=== PATIENT | male | born 1945 ===

== ENCOUNTER 2018-02-13 20:36 | Emergency (ER) | payer SELFPAY ==
[2018-02-13 21:25] VITALS: PULSE 77; RESP 20; TEMP 97.8; O2SAT 100
--- NOTE | 2018-02-13 22:14 | ED PDOC ---
HPI: Back Time Seen by Provider: 02/13/18 21:30 Chief Complaint (Nursing): Back Pain Chief Complaint (Provider): Back Pain History Per: Patient Onset/Duration Of Symptoms: Days (x 120 days) Current Symptoms Are (Timing): Still Present Quality Of Discomfort: "Pain" Additional Complaint(s): 72 year old male, is currently a dialysis patient with a PMHx of HTN, presents to the ED complaining of intermittent L shoulder pain that radiates to the left mid back for about 4 months. Patient states he receives dialysis 3 times a week on Mondays, Wednesdays, and Fridays. Patient reports he has completed today's dialysis without any complications. Otherwise: (-) trauma, (-) injury, (-) fever , (-) cough, (-) chest pain, (-) shortness of breath, (-) abdominal pain, (-) nausea, (-) diarrhea. PMD: None provided Past Medical History Reviewed: Historical Data, Nursing Documentation, Vital Signs Vital Signs: Last Vital Signs Temp 97.8 F 02/13/18 21:20 Pulse 77 02/13/18 21:20 Resp 20 02/13/18 21:20 BP 179/78 H 02/13/18 21:20 Pulse Ox 100 02/13/18 21:20 - Medical History PMH: HTN - Surgical History Surgical History: No Surg Hx - Family History Family History: States: Unknown Family Hx - Allergies Allergies/Adverse Reactions: Allergies Allergy/AdvReac Type Severity Reaction Status Date / Time No Known Allergies Allergy Verified 02/13/18 21:19 Review of Systems ROS Statement: Except As Marked, All Systems Reviewed And Found Negative Musculoskeletal: Positive for: Back Pain (left shoulder pain radiating to left mid back) Physical Exam - Physical Exam Comments: GENERAL APPEARANCE: Patient is awake, alert, oriented x 3, in no acute distress. SKIN: Warm, dry; (-) cyanosis. EYES: (-) conjunctival pallor. ENMT: Mucous membranes moist. NECK: (-) tenderness, (-) stiffness, (-) lymphadenopathy. CHEST AND RESPIRATORY: (-) rales, (-) rhonchi, (-) wheezes; breath sounds equal bilaterally. HEART AND CARDIOVASCULAR: (-) irregularity; (-) murmur, (-) gallop. ABDOMEN AND GI: Soft; (-) tenderness; (-) palpable mass. BACK: (-) tenderness, (-) direct bony tenderness. EXTREMITIES: (-) tenderness, (+) AV fistula left medial intact, (-) erythema, ( -) edema, (-) deformity. Distal pulses good bilaterally. NEURO AND PSYCH: Mental status as above. Intact sensation bilaterally; normal strength in extension of the knees, plantar and dorsiflexion of the toes. - ECG O2 Sat by Pulse Oximetry: 100 (RA) Pulse Ox Interpretation: Normal Medical Decision Making Medical Decision Making: Time: 2150 Impression: Left shoulder pain Plan: -- Left Shoulder XR -- Blood pressure was elevated. When asked, patient admits to taking blood pressure medications today. XR L shoulder : no fracture, no dislocation, as read by INDY. X-ray results discussed with the patient in great detail. Repeat BP 167/77. Based on history, exam and diagnostic results, plan will be for outpatient follow up with pmd and given referral to ortho. Patient instructed to follow-up with pmd and referral provided in 1-2 days without fail. Advised to continue taking his pain medication tylenol #3 prn for pain. Return to the emergency room at any time for any new or worsening symptoms. Patient states he fully agrees with and understands discharge instructions. States that he agrees with the plan and disposition. Verbalized and repeated discharge instructions and plan. I have given the patient opportunity to ask any additional questions. Scribe Attestation: Documented by Fer Smith, acting as a scribe for Aniyah Hill PA-C. Provider Scribe Attestation: All medical record entries made by the Scribe were at my direction and personally dictated by me. I have reviewed the chart and agree that the record accurately reflects my personal performance of the history, physical exam, medical decision making, and the department course for this patient. I have also personally directed, reviewed, and agree with the discharge instructions and disposition. Disposition - Clinical Impression Clinical Impression: Left shoulder pain - Patient ED Disposition Is Patient to be Admitted: No Counseled Patient/Family Regarding: Studies Performed, Diagnosis, Need For Followup - Disposition Referrals: Сергей Gonzalez III, MD [Staff Provider] - Disposition: Routine/Home Disposition Time: 23:30 Condition: STABLE Additional Instructions: Thank you for letting us take care of you today. You were treated for L shoulder pain. The emergency medical care you received today was directed at your acute symptoms. Continue taking your pain medication. Return to the Emergency Department if your symptoms worsen, do not improve, or if you have any other problems. Please contact your doctor or referral provided in 2 days for re-evaluation and follow up. Bring any paperwork you were given at discharge with you along with any medications you are taking to your follow up visit. Our treatment cannot replace ongoing medical care by a primary care provider (PCP) outside of the emergency department. Thank you for allowing the [facility] team to be part of your care today. I Instructions: Shoulder Pain (DC) Forms: [employer] (Kyrgyz) Print Language: WALLISIAN
[2018-02-13 22:18] VITALS: BP 167/77
--- NOTE | 2018-02-14 12:03 | RAD ---
PROCEDURE: Radiographs of the Left Shoulder HISTORY: pain COMPARISON: No prior. FINDINGS: BONES: Normal. No fracture. JOINTS: Normal. Glenohumeral and acromioclavicular joints preserved. No osteoarthritis. SOFT TISSUES: Normal. OTHER FINDINGS: None. IMPRESSION: Normal radiographs of the left shoulder.
== END 2018-02-14 00:15 | disposition home or self-care (01) ==
LOC: H.ER 20:36
DX: M25.512 Pain in left shoulder (principal); M54.9 Dorsalgia, unspecified; I10 Essential (primary) hypertension; Z99.2 Dependence on renal dialysis